=== PATIENT | female | born 1990 | race Two or more races ===

== ENCOUNTER 2022-11-07 23:44 | Emergency (ER) | payer OTHER ==
[~2022-11-07] VITALS: Ht 170.2 cm; Wt 59.9 kg
[2022-11-08] MEDS ORDERED: ACETAMINOPHEN500 M2 PO (06:07)
== END 2022-11-08 06:36 | disposition home or self-care (01) ==
LOC: ER 23:44
DX: O20.9 Hemorrhage in early pregnancy, unspecified (principal); Z3A.00 Weeks of gestation of pregnancy not specified; R10.2 Pelvic and perineal pain

== ENCOUNTER 2023-04-24 09:51 | Outpatient (CLI) | payer OTHER ==
[~2023-04-24 09:51] MED LIST: ACETAMINOPHEN500 M2 PO
== END 2023-04-24 09:59 | disposition home or self-care (01) ==
LOC: RX STUDY 09:51
PROVIDERS: ATTEND Obstetrics & Gynecology Reproductive Endocrinology
DX: N93.0 Postcoital and contact bleeding (principal)

== ENCOUNTER 2024-07-10 14:12 | Outpatient (CLI) | payer OTHER ==
[~2024-07-10] VITALS: Ht 170.2 cm; Wt 67.6 kg
[2024-07-10 13:06] VITALS: BP 100/68
[2024-07-10] MEDS ORDERED: RINGERS SOLUTION,LACTATED 1,000 ML IV SCH (15:00)
[2024-07-10 15:45] VITALS: BP 107/69
[2024-07-10 16:44] LABS: URINE APPEARANCE Clear; URINE BILIRRUBIN Negative (NEGATIVE); URINE BLOOD Negative; URINE COLOR Yellow; URINE GLUCOSE Negative (NEGATIVE); URINE KETONE Negative (NEGATIVE); URINE LEUKOCYTE Large; URINE NITRATE Negative; URINE PROTEIN Negative (NEGATIVE); URINE UROBILINOGEN 0.2 E.U./dl
[2024-07-10 16:48] LABS: URINE BACTERIA 2837.3 uL (0.0-1933); URINE EPITHELIAL CELLS 25.6 uL (0.0-38.8); URINE RBC 2.9 uL (0.0-20.8)
[2024-07-10 17:47] LABS: URINE CAST 0.91 uL (0.0-1.40); URINE MUCUS SCANT
[2024-07-10] MEDS ORDERED: CEFAZOLIN SODIUM 1,000 MG VIAL IV STA (18:30)
[2024-07-10 19:49] VITALS: BP 107/69
== END 2024-07-10 17:13 | disposition home or self-care (01) ==
LOC: OBS/DEL 14:12
PROVIDERS: ATTEND Obstetrics & Gynecology
DX: O26.893 Other specified pregnancy related conditions, third trimester (principal); Z3A.30 30 weeks gestation of pregnancy

== ENCOUNTER 2024-09-13 19:39 | Inpatient (IN) | payer OTHER ==
[~2024-09-13] VITALS: Ht 170.2 cm; Wt 73.0 kg
[2024-09-13] MEDS ORDERED: AMPICILLIN SODIUM 2,000 MG VIAL ONE (19:58)
[2024-09-13] MEDS ORDERED: RINGERS SOLUTION,LACTATED 1,000 ML IV SCH (20:00)
[2024-09-13] MEDS ORDERED: AMPICILLIN SODIUM 2,000 MG in 0.9 % SODIUM CHLORIDE 100 ML IV SCH (20:00)
[2024-09-13 21:21] VITALS: BP 127/78
[2024-09-13] MEDS ORDERED: MISOPROSTOL 25 MCG TABLET ONE (21:48)
[2024-09-13] MEDS ORDERED: MISOPROSTOL 25 MCG TABLET VAG ONE (22:15)
[2024-09-13] MEDS ORDERED: OCUVITE LUTEIN1 EAC2 PO (22:35)
[2024-09-13] MEDS ORDERED: ECOTRIN81 MG PO (22:35)
[2024-09-13] MEDS ORDERED: PRENATAL TABLE1 EAC1 PO (22:35)
[2024-09-13 23:12] LABS: HEMOGLOBIN 12.2 g/dL (12.0-15.00); MEAN CELL VOLUME 86.1 fL (80.00-100.00); MEAN CORPUSCULAR HEMOGLOBIN 28.4 pg (27.00-32.0); PLATELET COUNT 307 K/uL (150-450)
[2024-09-13 23:13] LABS: URINE APPEARANCE Clear; URINE BILIRRUBIN Negative (NEGATIVE); URINE BLOOD Negative; URINE COLOR Yellow; URINE GLUCOSE Negative (NEGATIVE); URINE KETONE Negative (NEGATIVE); URINE LEUKOCYTE Negative; URINE NITRATE Negative; URINE PROTEIN Negative (NEGATIVE); URINE UROBILINOGEN 0.2 E.U./dl
[2024-09-13 23:17] LABS: RED CELL DISTRIBUTION WIDTH 16.4 % (11.5-14.5)
[2024-09-13 23:17] LABS: URINE BACTERIA 227.5 uL (0.0-1933); URINE EPITHELIAL CELLS 4.5 uL (0.0-38.8)
[2024-09-13 23:19] LABS: URINE RBC 0.5 uL (0.0-20.8)
[2024-09-13 23:25] VITALS: BP 119/71
[2024-09-13 23:27] LABS: INR < 0.93; PARTIAL THROMBOPLASTIN TIME 25.5 SECONDS (22.0-34.0); PROTHROMBIN TIME 9.5 SECONDS (9.0-11.5)
[2024-09-13] MEDS ORDERED: MEPERIDINE HCL/PF 50 MG/ML VIAL IV PRN (23:45)
[2024-09-13] MEDS ORDERED: PROMETHAZINE HCL 25 MG/ML AMPUL IV PRN (23:45)
[2024-09-14] VITALS (9 sets, daily range): BP systolic 111–136; BP diastolic 64–84
[2024-09-14] MEDS ORDERED: AMPICILLIN SODIUM 2,000 MG VIAL ONE (02:17)
[2024-09-14] MEDS ORDERED: OXYTOCIN 20 UNITS/500ML RL PIGGYBAG IV ONE (11:01)
[2024-09-14] MEDS ORDERED: OXYTOCIN 20 UNITS/500ML RL PIGGYBAG IV SCH (11:30)
[2024-09-14] MEDS ORDERED: CHLORHEXIDINE GLUCONATE 120 ML BOTTLE TOP ONE ×2 (16:22→18:30)
[2024-09-14] MEDS ORDERED: ERYTHROMYCIN BASE OPHT 1GM EACH TUBE OP ONE ×3 (16:22→18:30)
[2024-09-14] MEDS ORDERED: LIDOCAINE HCL 1% 10ML VIAL ONE (16:22)
[2024-09-14] MEDS ORDERED: OXYTOCIN 20 UNITS/1000ML RL PIGGYBAG IV ONE (16:22)
[2024-09-14] MEDS ORDERED: ACETAMINOPHEN 500 MG GEL..CAP PO PRN ×2 (18:30→19:30)
[2024-09-14] MEDS ORDERED: LIDOCAINE HCL 1% 10ML VIAL IJ ONE (18:30)
[2024-09-14] MEDS ORDERED: OXYTOCIN 1,000 ML IV SCH ×2 (18:30→19:30)
[2024-09-14] MEDS ORDERED: CHLORHEXIDINE GLUCONATE 120 ML BOTTLE TOP SCH (19:30)
[2024-09-14 21:21] LABS: HEMATOCRIT 32.2 % (36.0-45.00); HEMOGLOBIN 10.7 g/dL (12.0-15.00); MEAN CELL VOLUME 85.3 fL (80.00-100.00); MEAN CORPUSCULAR HEMOGLOBIN 28.4 pg (27.00-32.0); MEAN CORPUSCULAR HGB CONC 33.3 g/dl (32.0-36.0); PLATELET COUNT 271 K/uL (150-450); RED BLOOD COUNT 3.77 M/uL (4.00-6.00); RED CELL DISTRIBUTION WIDTH 16.2 % (11.5-14.5)
[2024-09-15] VITALS: BP 109/72
[2024-09-15 08:00] VITALS: BP 113/62
[2024-09-15] MEDS ORDERED: PNV,CALCIUM 72/IRON/FOLIC ACID 1 TAB TABLET PO SCH (09:00)
[2024-09-15 12:00] VITALS: BP 137/79
[2024-09-15 16:00] VITALS: BP 118/71
[2024-09-16 00:29] VITALS: BP 127/81
[2024-09-16 08:00] VITALS: BP 137/62
== END 2024-09-16 19:42 | disposition home or self-care (01) | DRG 807 ==
LOC: OB/GYN 19:39 → LDR 19:39 → OB/GYN 09-14 18:33
PROVIDERS: ADMIT Obstetrics & Gynecology; ATTEND Obstetrics & Gynecology
PROC: 3E0P7VZ Introduction of Hormone into Female Reproductive, Via Natural or Artificial Opening (ICD-10-PCS; 2024-09-13)
PROC: 4A1HXCZ Monitoring of Products of Conception, Cardiac Rate, External Approach (ICD-10-PCS; 2024-09-13)
PROC: 10E0XZZ Delivery of Products of Conception, External Approach (ICD-10-PCS; principal; 2024-09-14)
PROC: 3E033VJ Introduction of Other Hormone into Peripheral Vein, Percutaneous Approach (ICD-10-PCS; 2024-09-14)
DX: O80 Encounter for full-term uncomplicated delivery (principal); Z37.0 Single live birth; Z3A.40 40 weeks gestation of pregnancy